=== PATIENT | male | born 1965 | race Caucasian/White ===

== ENCOUNTER 2016-08-17 06:01 | Emergency (ER) | payer BC ==
[2016-08-17 06:17] VITALS: BP 196/94
--- NOTE | 2016-08-17 06:30 | EDM.PDOC ---
ED HPI Trauma - General Chief Complaint: Upper Extremity Injury/Pain Stated Complaint: BROKEN RIBS Time Seen by Provider: 08/17/16 06:20 Source: Reports: Patient History Limitations: Reports: No limitations - History of Present Illness INITIAL COMMENTS - FREE TEXT/NARRATIVE: 51-year-old male slipped on the ice this morning striking his left posterior shoulder hard on the ground. No neck or head injury. He went to work but the pain was worsening so he felt he needed to have it checked. No shortness of breath. No nausea or vomiting. The pain is localized just under the left shoulder blade and lateral. Occurred When: this morning Occurred Where: home Method of Injury: direct blow, fall Severity: moderate Pain/Injury Location: Reports: back (Just under and lateral to the left shoulderblade) Consciousness: Reports: no loss of consciousness Associated Symptoms: Reports: denies other symptoms Allergies/ADRs: Allergies No Known Allergies Allergy (Verified 08/17/16 06:13) Past Medical History HEENT History: Reports: Impaired vision, Other (see below) Other HEENT History: DENTURES UPPER AND LOWER Cardiovascular History: Reports: Hypertension Respiratory History: Reports: None Gastrointestinal History: Reports: None Genitourinary History: Reports: None Musculoskeletal History: Reports: None Neurological History: Reports: None Psychiatric History: Reports: None Endocrine/Metabolic History: Reports: Diabetes, type II Hematologic History: Reports: None Immunologic History: Reports: None Oncologic (Cancer) History: Reports: None Dermatologic History: Reports: None - Infectious Disease History Infectious Disease History: Reports: None - Past Surgical History Head Surgeries/Procedures: Reports: None HEENT Surgical History: Reports: Tonsillectomy GI Surgical History: Reports: None Endocrine Surgical History: Reports: None Neurological Surgical History: Reports: C-Spine Social & Family History - Family History HEENT: Reports: Impaired vision Cardiac: Reports: Heart murmur Respiratory: Reports: None GI: Reports: None : Reports: None OBGYN: Reports: None Musculoskeletal: Reports: None Neurological: Reports: None Psychiatric: Reports: None Endocrine/Metabolic: Reports: None Hematologic: Reports: None Immunologic: Reports: None Dermatologic: Reports: None Oncologic: Reports: Prostate - Tobacco Use Smoking Status *Q: Current Every Day Smoker Years of Tobacco use: 35 Packs/Tins Daily: 0.5 Used Tobacco, but Quit: No Month Tobacco Last Used: OLYA Second Hand Smoke Exposure: No - Caffeine Use Caffeine Use: Reports: Coffee - Recreational Drug Use Recreational Drug Use: No Review of Systems - Review of Systems Review Of Systems: See Below Constitutional: Denies: fever Ears: Reports: no symptoms Respiratory: Denies: shortness of breath, cough Cardiovascular: Denies: chest pain GI/Abdominal: Denies: Nausea, Vomiting Skin: Denies: bruising Neurological: Denies: headache Psychiatric: Reports: no symptoms Trauma Exam - Physical Exam Exam: See Below Exam Limited By: No limitations General Appearance: Reports: alert, no apparent distress Head: Reports: atraumatic Neck: Reports: non-tender Respiratory Exam: Reports: no respiratory distress Back: Reports: other (Patient is tender to palpation just under the left scapula and laterally. There is a small amount of swelling but no bruising, redness or crepitus.) Course - Vital Signs Last Recorded V/S: Last Vital Signs Temp 97 F 08/17/16 06:14 Pulse 67 08/17/16 06:14 Resp 14 08/17/16 06:14 BP 196/94 H 08/17/16 06:14 Pulse Ox 96 08/17/16 06:14 - Re-Assessments/Exams Free Text/Narrative Re-Assessment/Exam: 08/17/16 06:30 A two-view chest x-ray was obtained. 08/17/16 07:00 Chest x-ray was negative. Patient was given 10 hydrocodone to use as needed for extra pain control and encouraged to take an anti-inflammatory, increasing activity as tolerated. Departure - Departure Time of Disposition: 07:08 Disposition: Home, Self-Care 01 Condition: good Clinical Impression: Contusion of left chest wall Qualifiers: Encounter type: initial encounter Qualified Code(s): S20.212A - Contusion of left front wall of thorax, initial encounter Contusion of shoulder, left Qualifiers: Encounter type: initial encounter Qualified Code(s): S40.012A - Contusion of left shoulder, initial encounter Instructions: Chest Contusion Referrals: PCP,None [Primary Care Provider] - Forms: ED Department Discharge Care Plan Goals: Ice sore areas for the next 2 days, a regular anti-inflammatories such as ibuprofen or naproxen will help and add stronger pain medications as prescribed. Increase activity as tolerated and recheck in 4-5 days if not improving satisfactorily.
--- NOTE | 2016-08-17 09:01 | CR ---
Two-view chest The heart and vascular structures are within normal limits. There is evidence of a prominent fat pad near the cardiac apex. There are no infiltrates or effusions. The skeletal structures appear intact . Impression: 1. No acute findings.
== END 2016-08-17 07:08 | disposition home or self-care (01) ==
LOC: JP.ED 06:01
DX: S20.212A Contusion of left front wall of thorax, initial encounter (principal); S40.012A Contusion of left shoulder, initial encounter; F17.210 Nicotine dependence, cigarettes, uncomplicated; H54.7 Unspecified visual loss; I10 Essential (primary) hypertension; E11.9 Type 2 diabetes mellitus without complications; W00.0XXA Fall on same level due to ice and snow, initial encounter; Z98.890 Other specified postprocedural states
CPT/HCPCS: 71020; 71020-26; 99284